=== PATIENT | male | born 1960 | race Caucasian/White ===

== ENCOUNTER 2019-10-21 15:31 | Emergency (ER) | payer SELFPAY ==
[~2019-10-21] VITALS: Ht 188 cm; Wt 94.3 kg
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
[2019-10-21] MEDS ORDERED: FENTANYL PF 100MCG/2ML AMPUL IM ONE (16:00)
[2019-10-21] MEDS ORDERED: KETOROLAC TROMETHAMINE INJ 30 MG/ML VIAL IM ONE (16:00)
[2019-10-21] MEDS ORDERED: KETOROLAC TROMETHAMINE INJ 30 MG/ML VIAL ONE (16:04)
[2019-10-21] MEDS ORDERED: FENTANYL PF 100MCG/2ML AMPUL ONE (16:04)
[2019-10-21] MEDS ORDERED: PROPOFOL 200 MG/20 ML VIAL IV ONE (16:30)
[2019-10-21] MEDS ORDERED: KETAMINE HCL (500MG/10ML) 50 MG/ML VIAL IV ONE (16:30)
[2019-10-21] MEDS ORDERED: KETAMINE HCL (500MG/10ML) 50 MG/ML VIAL ONE (16:41)
[2019-10-21] MEDS ORDERED: PROPOFOL 20 ML IV ONE (16:41)
--- NOTE | 2019-10-21 17:25 | NUR ---
CLOSED REDUCTION ON LEFT SHOULDER DONE BY DR. VICTOR.
--- NOTE | 2019-10-21 18:00 | NUR ---
PATIENT AWAKE, ALERT AND ORIENTED X4, BREATHING EVEN AND UNLABORED, NO SOB NOTED. NEEDS ATTENDED. VITALS STABLE.
--- NOTE | 2019-10-21 18:26 | NUR ---
IV removed. Catheter intact and site benign. Pressure and 4x4 applied to site. No bleeding noted. Patient discharged to home in stable condition. Written and verbal after care instructions given. Patient verbalizes understanding of instruction. Instructed not to drive.
[2019-10-21 18:27] VITALS: BP 147/99
== END 2019-10-21 18:28 | disposition home or self-care (01) ==
LOC: ER 15:34
DX: S43.085A Other dislocation of left shoulder joint, initial encounter (principal); V19.88XA Pedal cyclist (driver) (passenger) injured in other specified transport accidents, initial encounter; Y93.89 Activity, other specified; Y92.89 Other specified places as the place of occurrence of the external cause; Y99.8 Other external cause status
CPT/HCPCS: 23650; 73030 ×2; 96372 ×2; 99152; 99285; J1885; J2704; J3010; J3490; J7030; G0500